=== PATIENT | female | born 1965 | race Caucasian/White ===

== ENCOUNTER 2023-10-03 06:00 | Day surgery (SDC) | payer OTHER ==
[~2023-10-03] VITALS: Ht 162.6 cm; Wt 99.8 kg
[2023-10-03] MEDS ORDERED: ACETAMINOPHEN I.V. 1000 MG 100 ML IV ONE (06:39)
[2023-10-03] MEDS ORDERED: fentaNYL CITRATE/PF 100 MCG/2 ML AMP ONE (06:39)
[2023-10-03] MEDS ORDERED: MIDAZOLAM HCL 2 MG/2 ML VIAL (VERSED) ONE (06:39)
[2023-10-03] MEDS ORDERED: CEFAZOLIN SOD 2 GM in D5W 50 ML IV ONE (07:00)
[2023-10-03 07:45] VITALS: O2SAT 96
[2023-10-03] MEDS ORDERED: ROCURONIUM BROMIDE 10 MG/ML (ZEMURON) ONE (07:45)
[2023-10-03] MEDS ORDERED: NS 250 ML IV.SOLN IV ONE (07:45)
[2023-10-03] MEDS ORDERED: NS 1000 ML IV.SOLN IV ONE (07:45)
[2023-10-03] MEDS ORDERED: SEVOFLURANE 15 MIN GAS INH ONE (07:45)
[2023-10-03] MEDS ORDERED: DEXAMETHASONE SOD PHOSPHATE 4 MG/ML VIAL ONE (07:45)
[2023-10-03] MEDS ORDERED: IOHEXOL 300 mgI/mL, 50 mL INFUS..BTL IV ONE (07:45)
[2023-10-03] MEDS ORDERED: BUPIVACAINE /PF 0.25% 30 ML VIAL INJ ONE (07:45)
[2023-10-03] MEDS ORDERED: fentaNYL CITRATE/PF 100 MCG/2 ML AMP IVP PRN ×2 (08:30)
[2023-10-03] MEDS ORDERED: ONDANSETRON HCL 4 MG/2 ML VIAL IVP PRN (08:30)
[2023-10-03] MEDS ORDERED: LR 1,000 ML IV ONE (08:30)
[2023-10-03] MEDS ORDERED: LABETALOL HCL 20 MG/4 ML CARTRIDGE IVP ONE ×2 (09:06→11:30)
[2023-10-03] MEDS ORDERED: HYDROmorphone 1 MG/ML INJ. CARTRIDGE ONE ×2 (09:15→09:59)
[2023-10-03] MEDS ORDERED: D5/0.45 NS 1,000 ML IV SCH (09:30)
[2023-10-03] MEDS ORDERED: HYDROcodone/ACETAMIN 5-325 MG TAB (NORCO/ VICODIN) PO PRN (09:30)
[2023-10-03] MEDS ORDERED: HYDROcodone/ACETAMIN 10-325 MG TAB PO PRN (09:30)
[2023-10-03] MEDS: LABETALOL HCL 20 MG/4 ML CARTRIDGE IVP ONE (10:07)
[2023-10-03] MEDS: HYDROmorphone 1 MG/ML INJ. CARTRIDGE IVP PRN (10:13)
[2023-10-03] MEDS: HYDROcodone/ACETAMIN 10-325 MG TAB ONE (13:44)
[2023-10-03 17:37] VITALS: BP_SYST 153; PULSE 98; RESP 16
== END 2023-10-03 15:30 | disposition home or self-care (01) ==
LOC: SMU 06:00 → SDS 06:00
PROVIDERS: ATTEND Colon & Rectal Surgery
DX: K80.10 Calculus of gallbladder with chronic cholecystitis without obstruction (principal); K21.9 Gastro-esophageal reflux disease without esophagitis; G89.29 Other chronic pain; I10 Essential (primary) hypertension; E11.9 Type 2 diabetes mellitus without complications; E78.5 Hyperlipidemia, unspecified; M19.90 Unspecified osteoarthritis, unspecified site; E66.01 Morbid (severe) obesity due to excess calories; M79.7 Fibromyalgia; Z90.710 Acquired absence of both cervix and uterus; Z90.721 Acquired absence of ovaries, unilateral; Z68.37 Body mass index [BMI] 37.0-37.9, adult; Z87.891 Personal history of nicotine dependence; Z79.899 Other long term (current) drug therapy
CPT/HCPCS: 87081; 47563; 82948; 88304; J3490; J0690; J1100; J3465; J3010; J1170; Q9967; J7060; J7050; J7030; C1727; J0131; S2900; 76000